=== PATIENT | male | born 1950 | race African-American/Black ===

== ENCOUNTER 2016-07-16 15:00 | Emergency (ER) | payer MEDICARE ==
[~2016-07-16 15:00] MED LIST: AMIODARONE HCL INJ 150 MG/3 ML VIAL IV ONE; EPINEPHRINE INJ 1 MG/10 ML DISP.SYRIN ONE; LIDOCAINE RTU 2 GM/D5W 250 ML (8 MG/ML) PREMIX IV ONE; SUCCINYLCHOLINE CHLORIDE INJ 200 MG/10 ML VIAL ONE
[2016-07-16] MEDS ORDERED: PROPOFOL 100 ML IV ONE (15:08)
--- NOTE | 2016-07-16 15:18 | ER Document Report ---
ED General - General Stated Complaint: POSSIBLE SYNCOPE Time Seen by Provider: 07/16/16 15:00 Mode of Arrival: Medic Information source: Emergency Med Personnel Notes: 65-year-old male presents emergency traffic with concerns of minimal responsiveness. Patient initially found minimally responsive mumbling by family member, patient has had a previous CVA DE CABG. patient found by EMS to the millimeter responsive, EKG noted significant ST elevation in aVR with significant depressions all throughout, concern for DE attempted to go to [facility] but due to minimal responsiveness and concern for airway protection patient brought to this emergency department TRAVEL OUTSIDE OF THE [place] IN LAST 30 DAYS: No - HPI Onset: Just prior to arrival Onset/Duration: Sudden Quality of pain: No pain Severity: Severe Pain Level: Denies Associated symptoms: Other Exacerbated by: Denies Relieved by: Denies Similar symptoms previously: No Recently seen / treated by doctor: No - Related Data Allergies/Adverse Reactions: No Known Allergies Allergy (Verified 06/10/15 11:38) Past Medical History - General Information source: Emergency Med Personnel Cannot obtain history due to: Unstable vital signs, Altered mental status - Social History Smoking Status: Current Every Day Smoker Cigarette use (# per day): Yes Chew tobacco use (# tins/day): No Smoking Education Provided: No Family History: Reviewed & Not Pertinent - Past Medical History Cardiac Medical History: Reports: Hx Heart Attack - 2002, Hx Hypertension Pulmonary Medical History: Denies: Hx Asthma, Hx Bronchitis, Hx COPD Neurological Medical History: Reports: Hx Cerebrovascular Accident - 2006 with left sided weakness Endocrine Medical History: Reports: Hx Diabetes Mellitus Type 2 Renal/ Medical History: Reports: Hx Benign Prostatic Hyperplasia GI Medical History: Denies: Hx Gastroesophageal Reflux Disease Musculoskeltal Medical History: Denies Hx Arthritis Psychiatric Medical History: Reports: Hx Depression Past Surgical History: Reports: Hx Cardiac Surgery - TRIPLE BYPASS, CAROTID ARTERY, Hx Carotid Endarterectomy, Hx Coronary Artery Bypass Graft, Hx Open Heart Surgery - cabg x3, left carotid artery - Immunizations Immunizations up to date: No Hx Diphtheria, Pertussis, Tetanus Vaccination: No Hx Pneumococcal Vaccination: 11/13/14 Review of Systems - Review of Systems Notes: PHYSICAL EXAMINATION: GENERAL: extremely ill appearing male, gcs 4 HEAD: Atraumatic, normocephalic. EYES: pupils are reactive bilaterally ENT: Nares patent, oropharynx clear without exudates. Moist mucous membranes. NECK: Normal range of motion, supple without lymphadenopathy LUNGS: Breath sounds clear to auscultation bilaterally and equal. No wheezes rales or rhonchi. HEART: Regular rate and rhythm without murmurs ABDOMEN: Soft, nontender, nondistended abdomen. No guarding, no rebound. No masses appreciated. Musculoskeletal: no spontaneous rom NEUROLOGICAL: gcs 4 SKIN: Warm, Dry, normal turgor, no rashes or lesions noted. -: Yes ROS unobtainable due to patient's medical condition Physical Exam - Vital signs Vitals: Pulse Ox 97 07/16/16 15:09 Course - Re-evaluation Re-evalutation: 07/16/16 15:[address] Mendoza, requests holding lovenox and tnk due to concern for head bleed 07/16/16 15:39 Spoke jennifer aly who will see patient 07/16/16 15:44 ems flight here 07/16/16 16:18 Patient has coded twice more while EMS was attempting to transport 07/16/16 23:28 Patient was seen immediately upon arrival to the emergency department,at 1450 my initial concern was for a STEMI, patient had a GCS of 4 EKG was consistent with ST elevation and significant reciprocal changes, patient was given etomidate and succinylcholine and I intubated immediately, patient after intubation was given rectal aspirin and Lovenox, a Hemoccult was performed by myself which noted positive rectal bleed at this point I stopped the protocol at 1517, patient was started on propofol at 1519, unfortunately patient began to become bradycardic and chest compressions were started when pulses were lost , 1 mg of epinephrine was given. After chest compressions pulses did return and patient was noted to be in V. tach heart rate 190s, a 300 mg bolus of amiodarone was given and a drip was ordered. At 1528 [facility] was paged for transfer and was accepted. I did speak with campus recruiter at that time who requested lidocaine rather than amiodarone, lidocaine was started and unfortunately the patient became further bradycardic and pulses were lost again at 1553. Chest compressions were performed with epinephrine, pulses were reobtained at 1556. Again patient lost pulses at 1608 At this point at 1615 after spontaneous return on epinephrine drip was started, patient at this point was stable for transfer 07/16/16 23:32 It appears patient coded again in the [facility] and - Vital Signs Vital signs: Temp Pulse Resp BP Pulse Ox 100.9 F H 11 L 144/71 H 95 07/16/16 15:41 07/16/16 16:01 07/16/16 16:01 07/16/16 16:01 - Laboratory Result Diagrams: 07/16/16 15:09 07/16/16 15:09 Laboratory results interpreted by me: 07/16/16 15:09 WBC 11.8 H RBC 3.77 L Hgb 11.6 L Hct 35.7 L Lymphocytes % 12.7 L Absolute Neutrophils 9.0 H - Diagnostic Test Radiology reviewed: Image reviewed - Post intubation x-ray, Reports reviewed Procedures - Intubation Orotracheal Time of Intubation: 14:57 Airway evaluation: Loose teeth Mallampati Classification: Class 4 Medications: Etomidate, Succinylcholine Intubation method: Orotracheal Blade type: Rylie Blade size: 4 ETT size: 8.0 ETT secured at: Teeth ETT secured at (cm): 22 Breath Sounds after Intubation: Equal End tidal CO2 confirmed: Yes - Additional Procedures chest compression Time performed: 15:26 - 3 rounds of chest compressions Critical Care Note - Critical Care Note Total time excluding time spent on procedures (mins): 91 Comments: 91 minutes of continuous critical care time, please see nursing note for specifics Discharge - Discharge Clinical Impression: Cardiac arrest Heart attack Qualifiers: Myocardial infarction ST status: ST elevation myocardial infarction Involved coronary artery: LAD coronary artery Qualified Code(s): I21.02 - ST elevation ( STEMI) myocardial infarction involving left anterior descending coronary artery GI bleed Qualifiers: GI bleed type/associated pathology: unspecified gastrointestinal hemorrhage type Qualified Code(s): K92.2 - Gastrointestinal hemorrhage, unspecified Fever Qualifiers: Fever type: unspecified Qualified Code(s): R50.9 - Fever, unspecified Condition: Critical Disposition: [facility]
[2016-07-16] MEDS ORDERED: MIDAZOLAM 2 MG/2 ML INJ ONE (15:44)
--- NOTE | 2016-07-16 16:01 | RADIOLOGY REPORT (SQ) ---
EXAM DESCRIPTION: CHEST SINGLE VIEW COMPLETED DATE/TIME: 07/16/2016 3:38 pm REASON FOR STUDY: Unresponsive COMPARISON: Chest films 06/10/2015 EXAM PARAMETERS: NUMBER OF VIEWS: One view. TECHNIQUE: Single frontal radiographic view of the chest acquired. RADIATION DOSE: NA LIMITATIONS: Patient rotated towards the UZ[place] orientation FINDINGS: LUNGS AND PLEURA: Question airspace disease in the medial right upper lobe versus mediasti nal shadowing. Patient is rotated. Lungs are otherwise clear. No pleural effusion. No pneumothora x. MEDIASTINUM AND HILAR STRUCTURES: No masses. Contour normal. HEART AND VASCULAR STRUCTURES: Mild cardiomegaly with old sternotomy and CABG BONES: No acute findings. HARDWARE: Endotracheal tube tip 3 cm above the roberto. Defibrillator pads over the chest OTHER: No other significant finding. IMPRESSION: Endotracheal tube tip midtrachea. Probable mediastinal shadows projected over the right lung apex, patient is rotated. No other focal infiltrates. TECHNICAL DOCUMENTATION: JOB ID: [id number]
[2016-07-16] MEDS ORDERED: EPINEPHRINE INJ 30 MG/30 ML VIAL ONE (16:14)
[2016-07-16 16:23] LABS: ABSOLUTE LYMPHOCYTES (AUTO) 1.5 10^3/uL (0.5-4.7); ABSOLUTE MONOCYTES (AUTO) 1.2 10^3/uL (0.1-1.4); BASOPHILS % (AUTO) 0.3 % (0-2); EOSINOPHILS % (AUTO) 0.1 % (0-6); HEMATOCRIT 35.7 % (37.9-51.0); HEMOGLOBIN 11.6 g/dL (13.5-17.0); HGB HCT DIFFERENCE -0.9; LYMPHOCYTES % (AUTO) 12.7 % (13-45); MEAN CORPUSCULAR HEMOGLOBIN 30.8 pg (27.0-33.4); MEAN CORPUSCULAR HGB CONC 32.6 g/dL (32.0-36.0); MEAN CORPUSCULAR VOLUME 95 fl (80-97); MONOCYTES % (AUTO) 10.1 % (3-13); RED BLOOD COUNT 3.77 10^6/uL (4.35-5.55); RED CELL DISTRIBUTION WIDTH 13.5 % (11.5-14.0); SEGMENTED NEUTROPHILS % (AUTO) 76.8 % (42-78); WHITE BLOOD COUNT 11.8 10^3/uL (4.0-10.5)
[2016-07-16 16:43] LABS: CREATINE KINASE MB 3.46 ng/mL (<4.55)
[2016-07-16 16:46] LABS: TROPONIN I 0.595 ng/mL
[2016-07-16] MEDS ORDERED: ETOMIDATE INJ/PF 20 MG/10 ML SDV IV ONE ×2 (16:49→17:56)
[2016-07-16 17:22] VITALS: BP 144/71
[2016-07-16] MEDS ORDERED: MIDAZOLAM 2 MG/2 ML INJ IV ONE (17:56)
[2016-07-16] MEDS ORDERED: SUCCINYLCHOLINE CHLORIDE INJ 200 MG/10 ML VIAL IV ONE (17:56)
[2016-07-16] MEDS ORDERED: ASPIRIN 300 MG SUPP, RECTAL PR ONE (17:56)
[2016-07-16] MEDS ORDERED: PROPOFOL 100 ML IV PRN (17:57)
[2016-07-16] MEDS ORDERED: NORMAL SALINE 1000 ML 1,000 ML IV PRN (17:58)
[2016-07-16] MEDS ORDERED: ENOXAPARIN SODIUM INJ 30 MG/0.3 ML DISP.SYRIN SUBCUT SCH (18:00)
[2016-07-16] MEDS ORDERED: TENECTEPLASE INJ 50 MG KIT IV ONE (18:30)
[2016-07-16] MEDS ORDERED: ENOXAPARIN SODIUM INJ 30 MG/0.3 ML DISP.SYRIN SUBCUT ONE (18:30)
--- NOTE | 2016-07-17 09:42 | EKG REPORT ---
SEVERITY:- ABNORMAL ECG - PROBABLE SR LAD, CONSIDER LEFT ANTERIOR FASCICULAR BLOCK LVH WITH SECONDARY REPOLARIZATION ABNORMALITY ST-T WAVE DEPRESSION CONSISTENT WITH ISCHEMIA DIFFUSE LEADS : Confirmed by: America Sumner 17-Jul-2016 09:41:42
--- NOTE | 2016-07-17 09:42 | EKG REPORT ---
SEVERITY:- ABNORMAL ECG - SINUS RHYTHM VENTRICULAR PREMATURE COMPLEX NONSPECIFIC INTRAVENTRICULAR CONDUCTION DELAY ST DEPRESSION, CONSIDER ISCHEMIA, DIFFUSE LDS : Confirmed by: America Sumner 17-Jul-2016 09:42:07
== END 2016-07-16 16:21 | disposition short-term general hospital (02) ==
LOC: ER 15:00
PROC: 0BH17EZ Insertion of Endotracheal Airway into Trachea, Via Natural or Artificial Opening (ICD-10-PCS; principal; 2016-07-16)
DX: I21.02 ST elevation (STEMI) myocardial infarction involving left anterior descending coronary artery (principal); R55 Syncope and collapse; I25.2 Old myocardial infarction; F17.210 Nicotine dependence, cigarettes, uncomplicated
CPT/HCPCS: 93005; 99291; 99292; 92950; 96374; 36415; 82553; 85025; 84484; 71010; 93010; 31500; J0171; J2001; J0330; J0282